=== PATIENT | female | born 1990 | race African-American/Black ===

== ENCOUNTER 2024-04-01 00:26 | Emergency (ER) | payer MEDICAID ==
[~2024-04-01] VITALS: Ht 170.2 cm; Wt 109.5 kg
[2024-04-01 00:53] VITALS: TEMP 98.1; O2SAT 97
[2024-04-01] MEDS ORDERED: METH-653 MT (01:55)
[2024-04-01] MEDS ORDERED: LIDO700A15 TP (01:55)
[2024-04-01] MEDS: KETOROLAC 30MG/ML VIAL IM ONE (02:43)
[2024-04-01 02:49] VITALS: BP 129/76; PULSE 59; RESP 15
== END 2024-04-01 02:50 | disposition home or self-care (01) ==
LOC: ER 00:41
DX: M54.50 Low back pain, unspecified (principal); V49.9XXA Car occupant (driver) (passenger) injured in unspecified traffic accident, initial encounter; Y93.89 Activity, other specified; Y92.89 Other specified places as the place of occurrence of the external cause; Y99.8 Other external cause status
CPT/HCPCS: 99283; 96372; J1885

== ENCOUNTER 2024-10-11 15:24 | Emergency (ER) | payer MEDICAID ==
[~2024-10-11] VITALS: Ht 170.2 cm; Wt 86.0 kg
[~2024-10-11 15:24] MED LIST: LIDO700A15 TP; METH-653 MT
[2024-10-11 15:34] VITALS: BP 136/104; PULSE 78; RESP 16; TEMP 36.8; O2SAT 100
[2024-10-11] MEDS ORDERED: CEPH500C2 MT (17:04)
== END 2024-10-11 17:15 | disposition home or self-care (01) ==
LOC: ER 15:24
DX: L73.9 Follicular disorder, unspecified (principal)
CPT/HCPCS: 99283